=== PATIENT | female | born 1980 | race Caucasian/White ===

== ENCOUNTER → 2023-08-05 12:40 | Outpatient (REF) | payer BC, SELFPAY | LOC: WDC 12:40 | PROVIDERS: ATTENDING PHYSICIAN Internal Medicine | DX: Z12.31 Encounter for screening mammogram for malignant neoplasm of breast (principal) | CPT/HCPCS: 77063; 77067 ==

== ENCOUNTER → 2023-08-10 12:47 | Outpatient (REF) | payer BC, SELFPAY | LOC: WDC 12:47 | PROVIDERS: ATTENDING PHYSICIAN Internal Medicine; FAMILY PHYSICIAN Internal Medicine | DX: R92.2 Inconclusive mammogram (principal); R92.8 Other abnormal and inconclusive findings on diagnostic imaging of breast | CPT/HCPCS: 76641 ==

== ENCOUNTER → 2023-09-08 15:20 | Outpatient (REF) | payer BC, SELFPAY | LOC: RAD 15:20 | PROVIDERS: ATTENDING PHYSICIAN Internal Medicine | DX: R10.2 Pelvic and perineal pain (principal); E04.1 Nontoxic single thyroid nodule; Z86.39 Personal history of other endocrine, nutritional and metabolic disease | CPT/HCPCS: 76536; 76830; 76856 ==

== ENCOUNTER → 2023-12-12 06:20 | Day surgery (SDC) | payer BC, SELFPAY | LOC: GI 06:20 | PROVIDERS: ATTENDING PHYSICIAN Internal Medicine | DX: Z12.11 Encounter for screening for malignant neoplasm of colon (principal) | CPT/HCPCS: G0121 ==

== ENCOUNTER → 2024-05-07 13:15 | Outpatient (REF) | payer BC, SELFPAY ==
[2024-05-07 13:57] LABS: % Basophils 0.8 % (0-2); % Eosinophils 0.1 % (0-6); % Immature Granulocytes 0.4 % (0-0.5); % Lymphocytes 13.3 % (20.5-51.1); % Monocytes 3.5 % (1.7-9.3); % Neutrophils 81.9 % (42.2-75.2); Absolute Basophils 0.1 10^3/uL (0-0.2); Absolute Lymphocytes 1.1 10^3/uL (1.2-3.4); Absolute Monocytes 0.3 10^3/uL (0.1-0.6); Hematocrit 40.2 % (37.0-47.0); Hemoglobin 13.9 g/dL (12.0-16.0); Mean Corp Hgb Conc. 34.6 g/dL (33.0-37.0); Mean Corpuscular Hgb 30.4 pg (27.0-31.0); Mean Platelet Volume 10.1 fL (7.4-10.4); Nucleated Red Blood Cells % 0 %; Platelet Count 267 10^3/uL (130-400); Red Blood Cell Count 4.57 10^6/uL (4.20-5.40); Red Cell Dist. Width 11.9 % (11.5-14.5); White Blood Cell Count 8.6 10^3/uL (4.8-10.8)
[2024-05-07 14:22] LABS: ALT (SGPT) 15 U/L (0-35); AST (SGOT) 22 U/L (14-36); Albumin 4.7 g/dl (3.5-5.0); Alkaline Phosphatase 126 U/L (38-126); Blood Urea Nitrogen 11 mg/dl (7-17); Calcium 9.6 mg/dl (8.4-10.2); Carbon Dioxide 25 mmol/L (22-30); Chloride 101 mmol/L (98-107); Glucose 104 mg/dl (70-99); Magnesium 1.9 mg/dl (1.6-2.3); Potassium 4.9 mmol/L (3.5-5.1); Sodium 136 mmol/L (135-145); Total Bilirubin 0.6 mg/dl (0.2-1.3); Total Protein 7.7 g/dl (6.3-8.2); eGFR > 60.00
[2024-05-08 03:14] LABS: Free T4 0.93 ng/dl (0.78-2.19)
[2024-05-08 03:27] LABS: TSH 2.23 uIU/ml (0.47-4.68)
== END ==
LOC: REG 13:15
PROVIDERS: ATTENDING PHYSICIAN Internal Medicine
DX: R00.2 Palpitations (principal); E05.90 Thyrotoxicosis, unspecified without thyrotoxic crisis or storm
CPT/HCPCS: 36415; 80053; 83735; 84439; 84443; 85025

== ENCOUNTER 2024-05-08 08:38 | Emergency (ER) | payer BC, SELFPAY ==
[2024-05-08 08:40] VITALS: BP 146/106
[2024-05-08 08:57] VITALS: BP 123/71
--- NOTE | 2024-05-08 09:01 | ED.GENMED ---
History of Present Illness
General
Chief Complaint: Heart Rate Problem
Source: patient, spouse and physician (Primary physician who called ahead)
Exam Limitations: none
Time Seen by Provider: 05/08/24 08:40
Nursing documentation reviewed up to this point in time: agreed with
History of Present Illness
History of Present Illness:
44-year-old female with history of hyperthyroidism/thyroiditis in the past, anxiety who presents to the emergency department referred by her primary doctor for palpitations/tachycardia. Patient reports that she has had intermittent palpitations for
the past few months but it has been much worse over the past few days. She says that she has noticed elevated heart rate at home associated with sensation of palpitations and some mild shortness of breath although she is unsure whether this may be
some component of anxiety. She initially saw her primary doctor in the office yesterday for the symptoms. I spoke to her primary doctor directly�apparently EKG in the office showed significantly elevated heart rate of 160 but appeared to be
consistent with a sinus tachycardia. She was sent for stat outpatient labs and was treated with propranolol�heart rate did improve with propranolol. Outpatient labs resulted today and showed normal thyroid studies, normal CBC/BMP. Meanwhile
patient says that she has continued to have intermittent palpitations and tachycardia particularly when she moves around/exerts herself and primary referred her to the emergency room. Currently here in the emergency room she says she has minimal
symptoms but she says that they seem to be coming and going. She does not get any associated chest pain or lightheadedness/dizziness. She denies any recent swelling or pain in the legs. She denies any recent illness/URI symptoms. She denies any
other complaints. She does not take any medications currently. Denies any drug or alcohol use. She does report occasional caffeine.
Past History
Past History
ED Past Medical History: Other (Thyroiditis with initial hyperthyroidism then hypothyroidism, resolved within a few months spring 2022.) and Other (Heart palpitations accompanying with thyroiditis. Long QT)
ED Past Surgical History: None
Social History
Tobacco: Non-smoker
Alcohol: Occasional
Drug: None
Personal:
Living: with family
Employment: Employed
Family History
Family History: Other (Noncontributory)
Review of Systems
Review of Systems
All Other Systems: ROS reviewed and negative except as documented in HPI and ROS
Constitutional: Denies fever or chills
Respiratory: Reports trouble breathing; Denies cough
Cardiac: Reports palpitations; Denies chest pain, diaphoresis or syncope
ABD/GI: Denies abdominal pain
: Denies flank pain
Musculoskeletal: Denies edema, neck pain or back pain
Neurological: Denies dizzy or headache
Phy Exam
Physical Exam
Physical Exam:
General: Awake, alert, oriented x3; no acute distress
Head: Normocephalic, atraumatic
Eyes: Conjunctiva normal, sclera anicteric
Throat: Airway intact, handling secretions
Neck: Trachea midline, supple without meningismus
Lungs: Clear to auscultation bilaterally, no wheezing, rales, rhonchi
Heart: Regular rate and rhythm, no murmurs, gallops, or rubs�heart rate 80s appears sinus on the monitor
Abd: Soft, non distended, nontender
Neuro: No gross deficits
Extremities: No edema in extremities, equal pulses in all extremities
Scores
Heart Failure Risk
Heart Failure Risk Score: Not Applicable
Heart Score for Chest Pain Patients
STEMI patient?: Not applicable
Withdrawal Assessment of Alcohol
Withdrawal Assessment Completed?: Not applicable
Course
Orders/Labs/Results
Orders:
Orders
05/08/24 08:39
Electrocardiogram (*1) Urgent
Reason for Study: Bradycardia / Tachycardia
EKG- Treatment ONCE
Test Result ONCE
05/08/24 09:00
CT Chest PE Study Urgent
Comment:
Reason For Exam: tachycardia, SOB
05/08/24 09:05
Complete Blood Count/With Diff Urgent
Comprehensive Metabolic Panel Urgent
HCG, Serum Qualitative Screen Urgent
Magnesium Urgent
NT-proBNP Urgent
PTT Urgent
Prothrombin Time Urgent
TSH Reflex To Free T4 Urgent
Troponin I Urgent
05/08/24 10:49
Echo 2D MMode Color/Doppler Urgent
Reason for Study: tachycardia
Cardiology Consult: Kya Lynn
Abnormal Lab Results
05/08/24
09:05
Glucose 119 H mg/dl
(70-99)
05/08/24 09:05
05/08/24 09:05
Vital Signs
Initial and Last Documented VS:
Initial Vital Signs
Temp Pulse Resp BP Pulse Ox
37.0 C 83 18 146/106 99
05/08/24 08:40 05/08/24 08:40 05/08/24 08:40 05/08/24 08:40 05/08/24 08:40
Last Documented Vital Signs
Temp Pulse Resp BP Pulse Ox
36.9 C 68 20 124/88 99
05/08/24 09:24 05/08/24 11:00 05/08/24 09:24 05/08/24 11:00 05/08/24 11:00
MDM/Problems Addressed
Differential Diagnosis Includes:
Dysrhythmia (A-fib, a flutter, atrial tach, SVT/AVNRT, etc), anemia, electrolyte derangement, PE, myocarditis, hyperthyroidism, anxiety
MDM/Problems Addressed:
44-year-old female presents for tachycardia and palpitations worsening over the past few days associated with some mild shortness of breath/anxious feeling. Seen yesterday by PCP and had markedly elevated heart rate that improved with propranolol,
outpatient labs nondiagnostic and referred to the ED with persistent and worsening symptoms. Here resting in the bed she is essentially asymptomatic but says that when she moves around symptoms become more pronounced. Marginal hypertension,
otherwise normal vitals including heart rate in the 80s sinus on the monitor. Her EKG shows sinus rhythm with no delta wave, normal QTc, no Brugada. Will send repeat labs CBC and CMP, thyroid studies, troponin, proBNP, coags. Check an hCG. Check
CT PE. Monitor on telemetry and reassess.
Labs reviewed: CBC and CMP unremarkable. Troponin undetectable, proBNP normal. Thyroid studies normal. hCG negative. CTA chest negative for PE or any other acute pathology. Patient remains sinus rhythm on the monitor heart rate in the 70s.
Case discussed with cardiology�patient is known to Dr. Lynn, there was a plan for outpatient echocardiogram later today, will perform echo here in the emergency room.
Discussed with cardiology�echo reassuring. Patient remains well-appearing with normal vitals no tachycardia during ER observation. Stable for discharge�cardiology to see patient immediately in their office today to set up for outpatient cardiac
monitor and will initiate propranolol. Patient comfortable with this plan. All questions answered.
Acute Exacerbation and/or Progression of Chronic Illness:
Acutely hypertensive
Acute Exacerbation and/or Progression of Chronic Illness: HTN
*Radiology
Radiology exam reviewed: radiology read reviewed
*Pulse Oximetry
Patient hypoxic: no
*EKG
Interpreted by ED Provider?: Yes
Heart Rate: 76
Rate: normal
Rhythm: sinus
[place]: normal axis
Interval: normal interval
QRS Pattern: normal QRS
Ischemia: no ischemia
*Critical Care Note
Total Time (30-74mins, 75-104mins- exclusive of procedures): Not Applicable
Data Reviewed
Review of Other/Old Records Reveals: Labs
Source: patient, spouse and physician
Patient Management
Discussion with other providers: PCP (Discussed directly with her primary doctor) and Compliance Investigator (Discussed with cardiology)
Update Note
Update Note:
PCP sent over EKG from yesterday in the office which is attached below
ED Attending Note
-
Portions of this chart may have been created with voice recognition software.� Occasional wrong word or��sound alike� substitutions may have occurred due to the inherent limitations of voice recognition software.
Discharge Plan
Departure
Patient Disposition: Home (Routine Discharge)
Date of Disposition: 05/08/24
Time of Disposition: 11:35
Patient with high blood pressure during this ER visit?: No
Discharge Problem:
Tachycardia, Palpitations
Instructions: Palpitations (DC)
Prescriptions:
No Action
No Current Medications
0
Referrals:
Elisabeth Foster MD [Family Provider] - Follow up in 5-7 days
Kya Lynn MD [Active] - Keep scheduled appt
Activity Restrictions/Additional Instructions:
Thank you for visiting the Emergency Department at [facility].
1. Please schedule a follow up appointment as directed. Call first thing tomorrow morning to make an appointment.
2. If indicated, please take your medications as instructed and indicated on discharge paperwork.
3. If any of your symptoms do not improve, or persist, or become more severe within 6-12 hours, please return to the emergency department for further care.
4. Please return to the emergency department if you develop a headache, neck pain/stiffness, fever greater than 100.4F, chest pain, shortness of breath, persistent nausea, vomiting, slurred speech, difficulty walking, numbness/tingling, weakness,
signs of infection or any other symptoms that are worrisome to you.
Please call [phone] if you have any questions.
Interventions
Interventions:
*Risk Screen - Suicide Last Done: 05/08/24 08:40
*General Assessment Last Done: 05/08/24 08:40
*Neglect/Abuse Screening Last Done: 05/08/24 08:40
ED- Fall Risk Assessment Last Done: 05/08/24 09:24
*ED COVID-19 Vaccine History Last Done: 05/08/24 08:40
ED- Cardiac Assessment Last Done: 05/08/24 09:24
ED- Pulmonary Assessment Last Done: 05/08/24 09:24
Discharge Date and Time
Print Language: FRENCH
[2024-05-08 09:04] VITALS: BMI 22.1
[2024-05-08 09:16] LABS: % Basophils 1.4 % (0-2); % Eosinophils 1.2 % (0-6); % Immature Granulocytes 0.2 % (0-0.5); % Lymphocytes 26.9 % (20.5-51.1); % Monocytes 5.5 % (1.7-9.3); % Neutrophils 64.8 % (42.2-75.2); Absolute Basophils 0.1 10^3/uL (0-0.2); Absolute Eosinophils 0.1 10^3/uL (0-0.7); Absolute Lymphocytes 1.8 10^3/uL (1.2-3.4); Absolute Monocytes 0.4 10^3/uL (0.1-0.6); Absolute Neutrophils 4.2 10^3/uL (1.4-6.5); Hematocrit 39.8 % (37.0-47.0); Hemoglobin 13.9 g/dL (12.0-16.0); Mean Corp Hgb Conc. 34.9 g/dL (33.0-37.0); Mean Corpuscular Hgb 30.5 pg (27.0-31.0); Mean Corpuscular Volume 87.5 fL (81.0-99.0); Mean Platelet Volume 10.1 fL (7.4-10.4); Nucleated Red Blood Cells % 0 %; Platelet Count 267 10^3/uL (130-400); Red Blood Cell Count 4.55 10^6/uL (4.20-5.40); Red Cell Dist. Width 12.2 % (11.5-14.5); White Blood Cell Count 6.5 10^3/uL (4.8-10.8)
[2024-05-08 09:23] LABS: PT 13.5 Sec (11.4-14.6)
[2024-05-08 09:24] VITALS: BP 123/71
[2024-05-08 09:24] LABS: APTT 27.9 Sec (23.4-35.0)
[2024-05-08 09:32] LABS: HCG, Serum Qualitative Screen Negative
[2024-05-08 09:40] LABS: ALT (SGPT) 15 U/L (0-35); AST (SGOT) 23 U/L (14-36); Alkaline Phosphatase 90 U/L (38-126); Blood Urea Nitrogen 11 mg/dl (7-17); Calcium 9.1 mg/dl (8.4-10.2); Carbon Dioxide 26 mmol/L (22-30); Chloride 103 mmol/L (98-107); Estimated Creatinine Clearance 73 ml/min; Glucose 119 mg/dl (70-99); Potassium 4.4 mmol/L (3.5-5.1); Sodium 137 mmol/L (135-145); Total Bilirubin 0.8 mg/dl (0.2-1.3); eGFR > 60.00
[2024-05-08 09:48] LABS: NT-proBNP 26.4 pg/ml; Troponin I < 0.012 ng/ml
[2024-05-08 10:00] VITALS: BP 116/84
[2024-05-08 10:08] LABS: TSH Reflex To Free T4 3.06 uIU/ml (0.47-4.68)
[2024-05-08 10:50] VITALS: BP 137/84
--- NOTE | 2024-05-08 10:51 | EDRN ---
Dr. Cole currently at the pts bedside
[2024-05-08 11:00] VITALS: BP 124/88
--- NOTE | 2024-05-08 11:05 | EDRN ---
echocardiogram being performed
--- NOTE | 2024-05-08 11:21 | EDRN ---
cardiology currently at the pts bedside
== END 2024-05-08 11:45 | disposition home or self-care (01) ==
LOC: EMR 08:38
PROVIDERS: EMERGENCY PHYSICIAN Emergency Medicine; FAMILY PHYSICIAN Internal Medicine
DX: R00.0 Tachycardia, unspecified (principal); R00.2 Palpitations; I10 Essential (primary) hypertension; Z86.39 Personal history of other endocrine, nutritional and metabolic disease
CPT/HCPCS: 99284; 71275; 80053; 83735; 83880; 84443; 84484; 84703; 85025; 85610; 85730; 93005; 93306; Q9967

== ENCOUNTER → 2024-08-13 08:54 | Outpatient (REF) | payer BC, SELFPAY | LOC: WDC 08:54 | PROVIDERS: ATTENDING PHYSICIAN Internal Medicine | DX: Z12.31 Encounter for screening mammogram for malignant neoplasm of breast (principal) | CPT/HCPCS: 77063; 77067 ==

== ENCOUNTER 2024-12-18 09:58 | Emergency (ER) | payer BC, SELFPAY ==
[2024-12-18 10:09] VITALS: BP 137/84
--- NOTE | 2024-12-18 11:20 | ED.GENMED ---
History of Present Illness
General
Chief Complaint: Chest Pain
Source: patient
Time Seen by Provider: 12/18/24 10:59
History of Present Illness
History of Present Illness:
44-year-old female presents emergency department with complaints of burning discomfort in her chest radiating upwards towards her throat. She first noticed it about 2 weeks ago described as a 'warm rash' then followed by a feeling like her heart
was racing and she felt blotchy in her chest and back and lightheaded like she might pass out. She was outdoors, and had taken 20 mg of propranolol before this event. She had a bowel movement and eventually her symptoms resolved. Since that time,
she has been having the symptoms on and off. She noted yesterday that she felt completely well. 2 days ago however she describes the same symptoms of a burning discomfort in the chest and throat area that then makes her feel 'panicky' and
lightheaded. This happened approximately 7 times, and each time she had a soft nonbloody bowel movement afterwards. Of note, patient recently reintroduce wheat into her diet. Today, she again developed the same symptoms, associated with numbness
that went down to her left arm, all fully resolved. Symptoms last for minutes at a time and then resolved completely. There are no specific provoking or relieving factors otherwise. She denies associated headache, dizziness, leg swelling, lower
abdominal pain, dyspnea, or other complaints. Of note, patient has a history of thyroiditis and takes propranolol from time to time. She also currently has a heart monitor in place after the event that she had 2 weeks ago. She had an echo in
April without structural abnormalities. She had recent labs including TSH that were unremarkable. Patient's PCP as well as family are now bedside.
Past History
Past History
ED Past Medical History: Other (Thyroiditis with initial hyperthyroidism then hypothyroidism, resolved within a few months spring 2022.) and Other (Heart palpitations accompanying with thyroiditis. Long QT)
ED Past Surgical History: None
Social History
Tobacco: Non-smoker
Alcohol: Occasional
Drug: None
Personal:
Living: with family
Employment: Employed
Family History
Family History: Other (Noncontributory)
Phy Exam
Physical Exam
Physical Exam:
GENERAL: Alert , in no apparent distress
EYE: pupils equal and reactive
NECK: Supple, no significant adenopathy.
ENT: o/p clr, mmm.
CARDIAC: Regular rate and rhythm .
LUNGS: Clear breath sounds bilaterally, no acute respiratory distress, no wheezes/rales/rhonchi
ABDOMEN: Soft, without focal tenderness, no r/g, no cvat
NEUROLOGICAL: Alert and oriented, no focal neuro deficits
SKIN: Warm and dry, skin intact.
MUSCULOSKELETAL: No edema, well perfused.
PSYCH: Normal and appropriate interaction.
Scores
Heart Score for Chest Pain Patients
STEMI patient?: Not applicable
Course
Orders/Labs/Results
Orders:
Orders
12/18/24 09:59
Electrocardiogram (*1) Urgent
Reason for Study: Chest Pain
EKG- Treatment ONCE
12/18/24 11:19
Mag Hydrox/Al Hydrox/Simeth [Maalox] 30 ml Phenobarb/Hyoscy/Atropine/Scop [] 10 ml Viscous Lidocaine 2% [Xylocaine Viscous Cup] 10 ml PO NOW
12/18/24 11:31
Mag Hydrox/Al Hydrox/Simeth [Maalox] 30 ml .ROUTE .STK-MED ONE
Phenobarb/Hyoscy/Atropine/Scop [] 10 ml .ROUTE .STK-MED ONE
Viscous Lidocaine 2% [Xylocaine Viscous Cup] 15 ml .ROUTE .STK-MED ONE
12/18/24 12:08
ECG [Electrocardiogram (*1)] Urgent
Reason for Study: Chest Pain
EKG- Treatment ONCE
12/18/24 12:14
0.9% Sodium Chloride 1000 ml [Nss] 1,000 ml IV BOLUS
12/18/24 12:15
Complete Blood Count/No Diff Urgent
Comprehensive Metabolic Panel Urgent
Lipase Urgent
Troponin I Urgent
12/18/24 12:17
diazePAM [Valium Injection] 2 mg IV NOW STA
12/18/24 13:18
Pantoprazole [Protonix IV] 40 mg IV NOW STA
Abnormal Lab Results
12/18/24
12:15
WBC 12.0 H 10^3/uL
(4.8-10.8)
MCH 31.2 H pg
(27.0-31.0)
Glucose 133 H mg/dl
(70-99)
12/18/24 12:15
12/18/24 12:15
Vital Signs
Initial and Last Documented VS:
Initial Vital Signs
Temp Pulse Resp BP Pulse Ox
98.7 F 80 16 137/84 96
12/18/24 10:09 12/18/24 10:09 12/18/24 10:09 12/18/24 10:09 12/18/24 10:09
Last Documented Vital Signs
Temp Pulse Resp BP Pulse Ox
98.7 F 77 16 129/86 100
12/18/24 10:09 12/18/24 13:00 12/18/24 13:00 12/18/24 13:00 12/18/24 13:00
*Pulse Oximetry
SaO2: 96
Oxygen Mode of Delivery: Room air
Patient hypoxic: no
*Critical Care Note
Total Time (30-74mins, 75-104mins- exclusive of procedures): Not Applicable
Update Note
Update Note:
Patient presents to the Emergency Department with
Number and Complexity of Problems Addressed at the Encounter
� Chronic conditions affecting care:
� Acute Exacerbation and/or Progression of Chronic Illness:
� Differential Diagnosis includes: But not limited to reflux, gastritis, anxiety, ACS, arrhythmia, etc. etc.
Amount and/or Complexity of Data to be Reviewed and Analyzed
� I performed an independent evaluation of and my interpretation is:
EKG: Read by me, normal sinus rhythm, normal rate, normal axis, no acute ischemia
CT:
Xrays:
Laboratory Studies: Generally unremarkable
Other:
� Review of other/old records reveals:
� Clinical information was obtained by an independent historian:
� Prescriptions/Medications Considered but not given:
� Further testing considered but not performed:
Risk of Complications and/or Morbidity or Mortality of Patient Management
� Social determinants of health affecting care:
� Discussion with other providers (PCP, Hospitalists, Consultants, etc):
� Escalation of care including admission/observation vs risk of discharge considered: Patient here with PCP at bedside who is very thorough, we mutually agree that symptoms likely related to reflux, and given she has a
unremarkable ECG here and recent labs with a monitor in place, further testing not indicated. PCP called in a PPI prescription, discussed with patient importance of follow-up and reasons return to ER.
Just prior to discharge patient had an episode again of feeling the burning associated with feeling anxious and flushed. At that time, blood pressure was elevated, otherwise vitals unremarkable. ECG at that time of symptoms looked unremarkable as
well. Given her symptoms, we placed an IV, gave fluids, check labs and with patient consent, administered a low-dose antianxiety medication although I am not convinced that this is the primary etiology of her symptoms. Status post all of this,
1:19 PM, patient feels better. Her PCP remains attentive and bedside and will continue the workup as an outpatient. Discussed with patient importance of follow-up and reasons return to the ER.
ED Attending Note
-
Portions of this chart may have been created with voice recognition software.� Occasional wrong word or��sound alike� substitutions may have occurred due to the inherent limitations of voice recognition software.
Discharge Plan
Departure
Patient Disposition: Home (Routine Discharge)
Date of Disposition: 12/18/24
Time of Disposition: 12:03
Patient with high blood pressure during this ER visit?: Yes
Condition: Good
Discharge Problem:
gerd
Instructions: Acid Reflux and GERD in Adults (DC), Chest Pain PCP Follow Up, BLOOD PRESSURE
Prescriptions:
No Action
No Current Medications
0
Referrals:
Elisabeth Foster MD [Family Provider, Internal Medicine] - Next open appointment
Activity Restrictions/Additional Instructions:
PLEASE TAKE THE MEDICATION PRESCRIBED. IF YOU DEVELOP INCREASING OR NEW PAIN, DIZZINESS, SWELLING, TROUBLE BREATHING, GET WORSE, OR OTHER WORRISOME SIGNS, PLEASE RETURN TO THE ER IMMEDIATELY!
Interventions
Interventions:
*Risk Screen - Suicide Last Done: 12/18/24 10:09
*General Assessment Last Done: 12/18/24 10:09
*Neglect/Abuse Screening Last Done: 12/18/24 10:14
*Nursing Disposition Last Done: 12/18/24 13:33
ED- Cardiac Assessment Last Done: 12/18/24 11:42
Discharge Date and Time
Discharge Date/Time: 12/18/24 13:34
Print Language: [id number]
[2024-12-18] MEDS: MAALOX 50 PO (11:33)
[2024-12-18 11:38] VITALS: BMI 23.0
[2024-12-18 11:55] VITALS: BP 155/92
[2024-12-18 12:00] VITALS: BP 147/90
[2024-12-18 12:07] VITALS: BP 145/87
[2024-12-18] MEDS: NSS 1000 IV (12:16)
[2024-12-18] MEDS: VALIUM INJECTION 2 MG IV (12:19)
[2024-12-18 12:37] LABS: Hematocrit 39.4 % (37.0-47.0); Hemoglobin 14.1 g/dL (12.0-16.0); Mean Corp Hgb Conc. 35.8 g/dL (33.0-37.0); Mean Corpuscular Volume 87.2 fL (81.0-99.0); Platelet Count 285 10^3/uL (130-400); Red Cell Dist. Width 11.9 % (11.5-14.5)
[2024-12-18 12:58] LABS: ALT (SGPT) 12 U/L (0-35); AST (SGOT) 21 U/L (14-36); Albumin 4.3 g/dl (3.5-5.0); Alkaline Phosphatase 87 U/L (38-126); Blood Urea Nitrogen 10 mg/dl (7-17); Calcium 8.9 mg/dl (8.4-10.2); Carbon Dioxide 23 mmol/L (22-30); Chloride 106 mmol/L (98-107); Estimated Creatinine Clearance 83 ml/min; Glucose 133 mg/dl (70-99); Potassium 4.6 mmol/L (3.5-5.1); Sodium 136 mmol/L (135-145); Total Protein 7.4 g/dl (6.3-8.2); eGFR > 60.00
[2024-12-18 13:00] VITALS: BP 129/86
[2024-12-18 13:02] LABS: Troponin I < 0.012 ng/ml
[2024-12-18 13:11] LABS: Lipase 110 U/L (23-300)
[2024-12-18] MEDS: PROTONIX IV 40 MG IV (13:28)
== END 2024-12-18 13:34 | disposition home or self-care (01) ==
LOC: EMR 09:58
PROVIDERS: EMERGENCY PHYSICIAN Emergency Medicine; FAMILY PHYSICIAN Internal Medicine
DX: K21.9 Gastro-esophageal reflux disease without esophagitis (principal); R07.89 Other chest pain
CPT/HCPCS: 99284; 96374; 96375; 80053; 83690; 84484; 85027; 93005